=== PATIENT | male | born 1980 | race Caucasian/White ===

== ENCOUNTER 2023-11-02 20:01 | Emergency (ER) | payer MEDICAID ==
[~2023-11-02] VITALS: Ht 188 cm; Wt 90.7 kg
[2023-11-02 20:46] VITALS: BP 117/85; PULSE 79; RESP 17; TEMP 98; O2SAT 100
[2023-11-02] MEDS ORDERED: IBUP-2213 PO (21:51)
== END 2023-11-02 21:58 | disposition home or self-care (01) ==
LOC: MED 20:01
DX: S60.132A Contusion of left middle finger with damage to nail, initial encounter (principal); Z79.899 Other long term (current) drug therapy; X58.XXXA Exposure to other specified factors, initial encounter; Y93.89 Activity, other specified; Y92.89 Other specified places as the place of occurrence of the external cause; Y99.8 Other external cause status
CPT/HCPCS: 73140; 99283